=== PATIENT | female | born 1960 | race Two or more races ===

== ENCOUNTER 2018-12-17 09:15 | Emergency (ER) | payer OTHER ==
[2018-12-17 09:20] VITALS: BP 154/68; PULSE 74; TEMP 97.7; BMI 272.9
--- NOTE | 2018-12-17 10:13 | PDOC ---
History of Present Illness - General Chief Complaint: Injury Stated Complaint: INJURY TO LT. ARM Time Seen by Provider: 12/17/18 09:28 History Source: Patient - History of Present Illness Occurred: reports: this morning Pain Location: reports: upper extremity Past History - Past Medical History Allergies/Adverse Reactions: Allergies Allergy/AdvReac Type Severity Reaction Status Date / Time No Known Allergies Allergy Verified 12/17/18 09:20 COPD: No GI Disorders: Yes (Hiatal hernia) HTN: Yes - Suicide/Smoking/Psychosocial Hx Smoking History: Never smoked Information on smoking cessation initiated: No Hx Alcohol Use: No Drug/Substance Use Hx: No Review of Systems - Review of Systems Musculoskeletal: Yes: Joint Pain. No: Joint Swelling Neurological: No: Numbness, Tingling *Physical Exam - Vital Signs Last Vital Signs Temp Pulse Resp BP Pulse Ox 97.7 F 74 17 154/68 99 12/17/18 09:17 12/17/18 09:17 12/17/18 09:17 12/17/18 09:17 12/17/18 09:17 - Physical Exam General Appearance: Yes: Appropriately Dressed. No: Apparent Distress HEENT: positive: Normal Voice Neck: positive: Supple Respiratory/Chest: negative: Respiratory Distress Extremity: positive: Other (no swelling to L hand/wrist, minimal ttp to thenar eminence, FROMI, sensation intact) Integumentary: positive: Dry, Warm Neurologic: positive: Fully Oriented, Alert, Normal Mood/Affect, Motor Strength 5/5 Medical Decision Making - Medical Decision Making 12/17/18 10:13 58-year-old female s/p b/l carpal tunnel surgery about 5 months ago, here with L hand wrist pain s/p injury at work today. 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 No sensory changes. see exam Hand strain No e/o serious injury at this time -Dc to take otc meds prn pain *DC/Admit/Observation/Transfer Diagnosis at time of Disposition: Hand strain Qualifiers: Encounter type: initial encounter Laterality: left Qualified Code(s): S66.912A - Strain of unspecified muscle, fascia and tendon at wrist and hand level, left hand, initial encounter - Discharge Dispostion Disposition: HOME Condition at time of disposition: Good - Referrals - Patient Instructions Printed Discharge Instructions: Muscle Strain Additional Instructions: It appears to sustain a minor hand strain. Take Tylenol or Motrin as needed - Post Discharge Activity
== END 2018-12-17 10:00 | disposition home or self-care (01) ==
LOC: JERFT 09:15
DX: S66.912A Strain of unspecified muscle, fascia and tendon at wrist and hand level, left hand, initial encounter (principal); W50.0XXA Accidental hit or strike by another person, initial encounter; Y93.F9 Activity, other caregiving; Y92.238 Other place in hospital as the place of occurrence of the external cause; Y99.0 Civilian activity done for income or pay; I10 Essential (primary) hypertension
CPT/HCPCS: 99282-25